=== PATIENT | male | born 1970 | race Caucasian/White ===

== ENCOUNTER 2024-08-06 23:47 | Emergency (ER) | payer BC ==
[2024-08-07 00:19] LABS: HEMOGLOBIN 14.2 g/dL (13.0-18.0); MEAN CORPUSCULAR HEMOGLOBIN 31.4 pg (27.0-32.0); MEAN CORPUSCULAR HGB CONC 34.6 g/dL (31.0-35.0); MEAN PLATELET VOLUME 8.9 fL (6.0-10.0); RED BLOOD CELL COUNT 4.52 M/uL (4.50-6.50); RED CELL DISTRIBUTION WIDTH 13.4 % (11.0-16.0); WHITE BLOOD CELL COUNT,WBC 16.8 K/uL (4.0-11.0)
[2024-08-07 00:39] LABS: ALBUMIN 3.5 g/dL (3.4-5.0); ANION GAP 14.7 mmol/L (5.0-15.0); BILIRUBIN TOTAL 0.5 mg/dL (0.0-1.0); CALCIUM 8.2 mg/dL (8.5-10.1); CREATININE 0.8 mg/dL (0.70-1.30); EST CRCL DRUG DOSING (CG) 104.33 mL/min; POTASSIUM,K 3.7 mmol/L (3.5-5.1); PROTEIN TOTAL,TP 6.9 g/dL (6.4-8.2)
[2024-08-07] MEDS: Sodium Chloride 0.9% 1,000 ML IV SCH (01:18)
[2024-08-07] MEDS: cefTRIAXone 1 GM in Sodium Chloride 0.9% 50 ML IV ONE (01:20)
[2024-08-07] MEDS: cefTRIAXone 1 GM Vial ONE (01:23)
== END 2024-08-07 09:15 | disposition home or self-care (01) ==
LOC: LB.ED 23:47
DX: S01.01XA Laceration without foreign body of scalp, initial encounter (principal); S09.90XA Unspecified injury of head, initial encounter; F10.129 Alcohol abuse with intoxication, unspecified; Z79.899 Other long term (current) drug therapy; Y90.8 Blood alcohol level of 240 mg/100 ml or more; W01.198A Fall on same level from slipping, tripping and stumbling with subsequent striking against other object, initial encounter
CPT/HCPCS: 12004; 36415; 70450; 72125; 80053; 80307; 85027; 96361; 96365; 99284; 99284-25; J0696; J3490; J7030